=== PATIENT | male | born 1970 | race Two or more races ===

== ENCOUNTER 2016-09-26 21:49 | Emergency (ER) | payer SELFPAY ==
--- NOTE | 2016-09-26 22:08 | ED Physician Chart ---
Chief Complaint/HPI - Patient Information Date Seen:: 09/26/16 Time Seen:: 21:50 Chief Complaint:: Anxiety. History of Present Illness:: Brought in by ambulance because he has been feeling anxious for a few hours earlier today. Pt now feels better. Pt admits having alcohol use. Pt denies illcit drug use. Pt denies any depressed mood. No visual or auditory hallucinations. Pt denies prior h/o mental illnesses. Pt overall feels well without bodily pain or discomfort. Allergies:: NKA Vitals:: see Nurse Note. Historian:: Patient Family MD/PCP:: unknown LMP:: N/A Review:: Nurse's Note Reviewed Review of Systems - Review of Systems General/Constitutional: No fever, No chills, No weight loss, No weakness, No diaphoresis, No edema, No loss of appetite Skin: No skin lesions, No rash, No bruising Head: No headache, No light-headedness Eyes: No loss of vision, No pain, No diplopia ENT: No earache, No nasal drainage, No sore throat, No tinnitus Neck: No neck pain, No swelling, No thyromegaly, No stiffness, No mass noted Cardio Vascular: No chest pain, No palpitations, No edema Pulmonary: No SOB, No cough, No wheezing GI: No nausea, No vomiting, No diarrhea, No pain G/U: No dysuria, No frequency, No hematuria Musculoskeletal: No bone or joint pain, No back pain, No muscle pain Endocrine: No polyuria, No polydipsia Psychiatric: No prior psych history, No depression, Anxiety, No suicidal ideation, No homicidal ideation, No auditory hallucination, No visual hallucination Hematopoietic: No bruising, No lymphadenopathy Allergic/Immuno: No urticaria, No angioedema Neurological: No syncope, No focal symptoms, No weakness, No paresthesia, No headache, No seizure, No dizziness, No confusion, No vertigo Past Medical History - Past Medical History Past Medical History: Other (h/o hepatitis C with cirrhosis.) Family History: None Social History: Non Smoker, Alcohol (Pt has been informed about health risks associated with alcohol use, especially with his h/o hepatic cirrhosis. Pt has been advised to stop alcohol use and to enroll in alcohol rehab program. Pt acknowledges understanding.), No Drug Use (Pt had prior illicit drug with IV heroin about 2 years ago.), Single, Other (lives with his relative in [place].) Employment:: Unemployed. Surgical History: other (L wrist surgery in 2012 due to injury.) Psychiatricy History: None Medication: Reviewed Family Medical History - Family Member Mother History Unknown: Yes Physical Exam - Physical Examination General/Constitutional: Awake, Well-developed, well-nourished, Alert, No distress Other Gen/Cons comments:: Breathes comfortably and speaks clearly. Head: Atraumatic Eyes: Lids, conjuctiva normal, PERRL, EOMI Other Eyes comments:: Mild scleral icterus noticed. Skin: Nl inspection, No rash, No skin lesions, No ecchymosis, No lymphadenopathy ENMT: External ears, nose nl, Nasal exam nl, Oropharynx nl Other ENMT comments:: Mucous membrane slightly dry. Neck: Nontender, Full ROM w/o pain, No nuchal rigidity, No mass, No stridor Respiratory: Nl effort/Exclusion, Clear to Auscultation, No Wheeze/Rhonchi/Rales Cardio Vascular: No murmur, gallop, rubs Other Cardio Vascular comments:: Regular rhythm with mild tachycardia. GI: No tenderness/rebounding/guarding, No organomegaly, No hernia, Normal BS's, Nondistended, No mass/bruits Extremities: No edema Neuro/Psych: Alert/oriented (oriented x 3), Normal gait, No focal deficits Misc: normal gait, Normal back, No paraspinal tenderness Labs/Radiology/EKG Results - Lab Results Results: Laboratory Tests 09/26/16 09/26/16 09/26/16 22:23 22:23 22:23 WBC 7.6 RBC 3.39 L Hgb 11.8 L Hct 32.9 L MCV 97.2 MCH 34.7 H MCHC Differential 35.7 RDW 13.3 Plt Count 116 L MPV 7.6 Neutrophils % 68.1 Lymphocytes % 17.2 L Monocytes % 13.8 H Eosinophils % 0.3 Basophils % 0.6 PT 12.1 H INR 1.15 PTT (Actin FS) 25.5 L Sodium 135 L Potassium 3.6 Chloride 105 Carbon Dioxide 22.7 Anion Gap 10.9 BUN 26 H Creatinine 1.1 Est GFR ( Amer) > 60.0 Est GFR (Non-Af Amer) > 60.0 BUN/Creatinine Ratio 23.6 Glucose 121 H Calcium 8.9 Total Bilirubin 3.6 H AST 233 H ALT 135 H Alkaline Phosphatase 100 Ammonia Troponin I Total Protein 7.2 Albumin 3.1 L Globulin 4.1 Albumin/Globulin Ratio 0.8 L Ethyl Alcohol < 10 09/26/16 09/26/16 22:23 22:23 WBC RBC Hgb Hct MCV MCH MCHC Differential RDW Plt Count MPV Neutrophils % Lymphocytes % Monocytes % Eosinophils % Basophils % PT INR PTT (Actin FS) Sodium Potassium Chloride Carbon Dioxide Anion Gap BUN Creatinine Est GFR ( Amer) Est GFR (Non-Af Amer) BUN/Creatinine Ratio Glucose Calcium Total Bilirubin AST ALT Alkaline Phosphatase Ammonia 118 H Troponin I 0.09 H* Total Protein Albumin Globulin Albumin/Globulin Ratio Ethyl Alcohol - EKG Interpretations EKG Time:: 22:22 Rate & Rhythm: Sinus tachycardia with VR 106 Comments:: No acute ischemic changes. ED Septic Shock - . Is Septic Shock (SBP<90, OR Lactate>4 mmol\L) present?: No Reassessment (Disposition) - Reassessment Reassessment:: 2340 Pt has been repeatedly evaluated. Pt remains stable. Pt is not anxious at this time. No chest pain or discomfort. Available lab results and EKG have been reviewed with pt. Remaining lab results are pending. 0010 Remaining lab results were reviewed with pt. Pt was recommended to be admitted to hospital for further treatment. Pt is alert and oriented x 3. Pt decided to leave AMA and preferred to seek further care elsewhere. Indications for further in hospital care, related benefits and risks, including risks for leaving AMA, had been well explained. All questions answered. Pt still chose to leave AMA and signed AMA form, witnessed by my nurse Wali. Pt was explained that if he changes his mind, he is welcomed to return anytime. Pt acknowledged understanding of all of the above. His sister Renay (?sp) will drive him home. Reassessment Condition:: Improved - Diagnosis Diagnosis:: Hepatic cirrhosis. Mildly elevated troponin I of unknown significance. Consider ischemic heart disease. Polysubstance abuse with alcohol, amphetamine and methamphetamine. Elevated CPK, consider rhadomyolysis. - Patient Disposition Discharge/Transfer:: Against Medical Advice Time:: 00:05 Condition at Disposition:: Stable ED Discharge Plan - Patient Disposition Admit/Discharge/Transfer: AGAINST MEDICAL ADVICE
[2016-09-26 22:32] LABS: % BASOPHILS 0.6 % (0.0-2.0); % EOSINOPHILS 0.3 % (0.0-5.0); % LYMPHOCYTES 17.2 % (20.0-50.0); % MONOCYTES 13.8 % (2.0-10.0); % NEUTROPHILS 68.1 % (40.0-80.0); HEMATOCRIT 32.9 % (39.0-49.0); HEMOGLOBIN 11.8 gm/dL (13.2-17.3); MEAN CELL VOLUME 97.2 fl (80-99); MEAN CORPUSCULAR HEMOGLOBIN 34.7 pg (26.0-30.0); MEAN CORPUSCULAR HGB CONC 35.7 pg (28.0-36.0); MEAN PLATELET VOLUME 7.6 fl; NEUTROPHILE ABSOLUTE 5.3 Th/cmm (1.8-8.0); PLATELET COUNT 116 Th/cmm (150-400); RED BLOOD COUNT 3.39 Mil/cmm (4.30-5.70); RED CELL DISTRIBUTION WIDTH 13.3 % (11.5-20.0); WHITE BLOOD COUNT 7.6 Th/cmm (4.8-10.8)
[2016-09-26 22:46] LABS: INR 1.15 (0.5-1.4); PROTHROMBIN TIME (TEST) 12.1 SECONDS (9.5-11.5)
[2016-09-26 22:47] LABS: ALB/GLOB RATIO 0.8 (1.0-1.8); ALKALINE PHOSPHATASE 100 U/L (34-104); ANION GAP 10.9 (7.0-16.0); BILIRUBIN,TOTAL 3.6 mg/dL (0.3-1.0); BUN - UREA NITROGEN 26 mg/dL (7-25); BUN/CREATININE RATIO 23.6; CALCIUM SERUM 8.9 mg/dL (8.6-10.3); CARBON DIOXIDE 22.7 mEq/L (21.0-31.0); CHLORIDE 105 mEq/L (98-107); CREATININE - SERUM 1.1 mg/dL (0.7-1.3); GLUCOSE 121 mg/dL (70-105); POTASSIUM SERUM 3.6 mEq/L (3.5-5.1); SGOT 233 U/L (13-39); SGPT/ALT 135 U/L (7-52); SODIUM SERUM 135 mEq/L (136-145)
[2016-09-26] MEDS ORDERED: Thiamine 100 mg/mL 2mL Vial ONE (23:02)
[2016-09-26] MEDS ORDERED: Magnesium Sulfate 1 gm/2 mL 2mL Vial IV ONE (23:02)
[2016-09-26] MEDS ORDERED: Multivitamin Inj 10 mL Vial IV ONE (23:03)
[2016-09-26] MEDS: Multivitamin Inj 10 ML, Thiamine HCL 100 MG, Magnesium Sulfate 2 GM, Folic Acid 1 MG in... IV ONE (23:15)
[2016-09-27 00:08] LABS: CREATINE KINASE MB 30.2 ng/mL (0.6-6.3)
[2016-09-27 00:16] LABS: URINE BILIRUBIN MODERATE (NEGATIVE); URINE BLOOD TRACE (NEGATIVE); URINE COLOR ORANGE; URINE GLUCOSE (UA) NEGATIVE (NEGATIVE); URINE KETONE 15 mg/dL (NEGATIVE); URINE PH 5.5; URINE PROTEIN 30 mg/dL (NEGATIVE); URINE UROBILINOGEN >=8.0 E.U./dL (0.2 - 1.0)
[2016-09-27 00:17] LABS: URINE RBC 0-2 /hpf (0-5); URINE WBC 0-2 /hpf (0-5)
[2016-09-27 00:18] LABS: AMPHETAMINE URINE POSITIVE (NEGATIVE); BARBITURATES URINE NEGATIVE (NEGATIVE); METHADONE URINE NEGATIVE (NEGATIVE); URINE BACTERIA FEW /hpf (NONE SEEN); URINE EPITHELIAL CELLS OCCASIONAL /lpf (FEW)
== END 2016-09-26 23:55 | disposition left against medical advice (07) ==
LOC: ER 21:49
DX: K74.60 Unspecified cirrhosis of liver (principal); R79.89 Other specified abnormal findings of blood chemistry; R74.8 Abnormal levels of other serum enzymes; F19.10 Other psychoactive substance abuse, uncomplicated; F10.10 Alcohol abuse, uncomplicated; F15.10 Other stimulant abuse, uncomplicated
CPT/HCPCS: 99285; 96365; 93005; 84484; 36415; 80307; 85025; 85610; 81001; 80320; 82140; 82550; 82553; 80053; J3411; 81003-TC; J3475; J7030; X6226; X6598